=== PATIENT | male | born 1995 | race Caucasian/White ===

== ENCOUNTER 2016-05-31 13:12 | Emergency (ER) | payer OTHER ==
[~2016-05-31] VITALS: Ht 182.9 cm; Wt 79.5 kg
[2016-05-31 13:15] VITALS: BP 133/84; PULSE 64; RESP 20; O2SAT 98
[2016-05-31 15:22] VITALS: BP 121/67; PULSE 72; RESP 20; O2SAT 99
--- NOTE | 2016-05-31 17:27 | ED.REPORT ---
HPI-Rash / Abscess Date of Service May 31, 2016 ED Provider: Chris Bui MD Deo is an otherwise healthy 21-year-old male with a chief complaint of an abscess on his face. He reports a roughly 4 year history of abscesses that form on his right cheek, which resolved well with treatment with doxycycline and incision and drainage, but return. He reports that the swelling and pain at this point is relatively minimal compared to his baseline, but he is hoping to be referred to dermatology. He also complains of a rash on his arms and legs that has been present for about one week. 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 He has not tried to treat it with anything. Nursing Notes Stated Complaint: DERMATOLOGY COMPLAINT Chief Complaint: Skin Rash/Abscess Nursing Notes Reviewed: Yes Allergies: Coded Allergies: No Known Allergies (Unverified , 05/31/16) Scheduled Doxycycline Hyclate (Doxycycline Hyclate) 100 Mg Capsule 100 MG PO BID General Time Seen by MD: 17:24 Chief Complaint Abscess Review of Systems Review of Systems Note: Negative unless stated otherwise in history of present illness Physical Exam General: Well appearing, well developed, well nourished, no acute distress. Head: Multiple small to medium sized pustules on the face, one with an area of crust. Atraumatic, normocephalic. Eyes: No scleral icterus or injection. No discharge. Vision grossly intact. ENT: Voice clear, hearing grossly intact. Respiratory: No respiratory distress, no increased work of breathing. Speaks in complete sentences. Skin: Multiple 1 cm circular, raised lesions with scale on forearms. Roughly 8 cm patch of similar but confluent lesions on his lateral right thigh. Otherwise Warm and dry. Neurological: Grossly nonfocal. Psychological: alert and oriented. Speech appropriate, linear and logical. Behavior appropriate. Initial Vital Signs Vital Signs (First) Date Time Temp Pulse Resp B/P Pulse Ox O2 Delivery O2 Flow Rate FiO2 05/31/16 13:15 36.9 64 20 133/84 98 Room Air Initial VS: Reviewed, Vital signs normal Re-Eval/Medical Decision Med Decision/Clinical Course Otherwise healthy 21-year-old male presents with a chief complaint of skin condition. Reports a long history of abscesses on his face. 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 He is interested in a dermatology referral. Physical exam reveals a small abscess on the patient's face as well as several smaller pustules. Patient states that it it is actually fairly small at this time. I suspect pustular acne. I do not see indication at this time to perform an incision and drainage, and would rather prefer to place the patient on doxycycline and provide a dermatology referral. The patient agrees with this plan. The rash on his arms and legs is small circular lesions slightly raised with scale, possibly psoriasis. Does not resemble tinea. I provided prescription for 2.5% hydrocortisone. I do not suspect a dangerous condition such as TEN or SJS. Provided return precautions. Discharge & Departure Impression: Primary Impression: Pustular acne Disposition: Home Discharge Condition All VS Reviewed: Yes Condition: Stable Patient Instructions: Acne (ED) Additional Instructions: Evaluation for skin condition in the emergency department. History and physical is suggestive of pustular acne on your face. Difficult for me to positively identify the cause of lesions on the arms and legs, however, and confident it is not caused by an emergent condition. As we discussed, I will provide a referral to dermatology. In the meantime I will write a prescription for doxycycline to treat the acne as well as 2.5% hydrocortisone to be used on the arms and legs. Return to emergency room for any new or worsening conditions including increasing redness, swelling, pain or fever. Referrals: Miguel Angel Ramos DO EDSupervising Provider for [facility]: Chris Bui MD Attending Statement Attending attestation: I saw this patient in conjunction with Shawn Mckinnon PA-C. I agree with the workup, evaluation, treatment and disposition. Chris Bui MD copies to: [facility] Chris Bui MD May 31, 2016 17:27 Shawn Mckinnon PA-C May 31, 2016 18:02
[2016-05-31] MEDS ORDERED: DOXY100C2 PO (18:06)
== END 2016-05-31 18:07 | disposition home or self-care (01) ==
LOC: SED 13:12
DX: L70.0 Acne vulgaris (principal); R21 Rash and other nonspecific skin eruption

== ENCOUNTER 2016-10-07 04:13 | Emergency (ER) | payer OTHER ==
[~2016-10-07] VITALS: Ht 182.9 cm; Wt 79.5 kg
[~2016-10-07 04:13] MED LIST: DOXY100C2 PO
[2016-10-07 04:19] VITALS: BP 129/84; PULSE 66; RESP 18; O2SAT 98
--- NOTE | 2016-10-07 04:29 | ED.REPORT ---
HPI-Back Pain Under 40 Date of Service Oct 07, 2016 ED Provider: Liam Britton Patient is a 21 year old male who presents to the ED complaining of low back pain onset 3 mo ago. His pain is worse after about 3 hours of sleep. He does not recall a mechanism of injury. He denies numbness, weakness, tingling, extremity pain, dysuria, fever, or any other symptoms. He is on Accutane. Nursing Notes Stated Complaint: BACK PAIN Chief Complaint: Back Pain or Injury Nursing Notes Reviewed: Yes Allergies: Coded Allergies: No Known Allergies (Unverified , 05/31/16) Scheduled Doxycycline Hyclate (Doxycycline Hyclate) 100 Mg Capsule 100 MG PO BID Scheduled PRN Methocarbamol (Robaxin-750) 750 Mg Tablet 1-2 TAB PO QID PRN PRN For Spasm Naproxen (Naprosyn) 500 Mg Tablet 500 MG PO BID PRN PRN For Pain General Time Seen by MD: 04:28 Chief Complaint Back pain Hx Obtained From: Patient Arrived By: Walk-in Sudden in Onset?: Yes Onset Occurred: More than a week ago... (3 months) Symptom Duration: Since onset Past Medical History Past Medical History Denies Past Surgical History None reported Smoking History Current Every Day Smoker Social History Alcohol Use: "Social" Other Social History: Good social support Ambulatory Status Independent Review of Systems Review of Systems Note: -tingling Constitutional: Denies: Fever Male: Denies Dysuria Musculoskeletal: Reports: Back pain, Denies: Extremity pain Neurologic: Denies: Numbness, Weakness Complete sys rev & neg: except as marked. Physical Exam Initial Vital Signs Vital Signs (First) Date Time Temp Pulse Resp B/P Pulse Ox O2 Delivery O2 Flow Rate FiO2 10/07/16 04:19 36.4 66 18 129/84 98 Room Air Initial VS: Reviewed, Vital signs normal Head / Eyes: Atraumatic, Normocephalic Neck: Full range of motion Respiratory: Breath sounds normal, Clear to auscultation, No respiratory distress Cardiovascular: Regular rate & rhythm, Heart sounds normal, Intact distal pulses Skin: Warm, Dry Psychiatric: Mood/affect normal, Behavior normal, Normal thought content General/Constitutional: Awake, Alert, No acute distress, Well appearing, Well developed Back: Atraumatic Guarded, paraspinal tenderness bilaterally. Unable to stand fully, best effort is canted forward at about 10 degrees. Neurologic: Oriented X3, Speech NL Interpretation & Diagnostics Lab Results Interpretation Result Diagram: 10/07/16 0600 10/07/16 0600 Test 10/07/16 05:20 10/07/16 06:00 Urine Color Yellow (YELLOW) Urine Appearance Clear (CLEAR,HAZY) Urine pH 6.5 (5.0-8.0) Urine Specific [place] 1.015 (1.003-1.035) Urine Protein Negativemg/dL (NEG,TRACE) Urine Glucose (UA) Negativemg/dL (NEGATIVE) Urine Ketones Negativemg/dL (NEGATIVE) Urine Occult Blood Negative (NEGATIVE) Urine Nitrite Negative (NEGATIVE) Urine Bilirubin Negative (NEGATIVE) Urine Urobilinogen Normalmg/dL (NORMAL) Urine Leukocyte Esterase Negative (NEGATIVE) Urine RBC 0-2/hpf (0-2) Urine WBC 0-5/hpf (0-5) Urine Epithelial Cells Occasional/hpf (NONE-MOD) Urine Crystals None seen (NONE SEEN) Urine Bacteria None/hpf (NONE-FEW) Urine Hyaline Casts None/lpf (NONE) Urine Granular Casts None seen (NONE SEEN) Urine Waxy Casts None seen (NONE SEEN) Urine Red Blood Cell Casts None seen (NONE SEEN) Urine White Blood Cell Casts None seen (NONE SEEN) Urine Mucus None seen (None Seen) Urine Trichomonas None seen (NONE SEEN) Urine Yeast None (NONE SEEN) Urinalysis Comment None Urine Culture Reflexed Not indicated White Blood Count 8.1th/mm3 (3.8-10.1) Red Blood Count 4.84mil/mm3 (4.40-5.80) Hemoglobin 15.2g/dL (13.8-17.2) Hematocrit 43.5% (41.0-50.0) Mean Corpuscular Volume 89.9fL (81-100) Mean Corpuscular Hemoglobin 31.4pg (27.0-35.0) Mean Corpuscular Hemoglobin Concent 34.9% (32.0-37.0) Red Cell Distribution Width 12.3% (12.3-15.4) Platelet Count 203bil/L (150-400) Neutrophils (%) (Auto) 58.6% (40-74) Lymphocytes (%) (Auto) 29.3% (14-46) Monocytes (%) (Auto) 8.6% (4-12) Eosinophils (%) (Auto) 2.8% (0-5) Basophils (%) (Auto) 0.6% (0-3) Erythrocyte Sedimentation Rate 1mm/hr (0-15) Sodium Level 139mEq/L (134-144) Potassium Level 4.2mEq/L (3.5-5.2) Chloride Level 101mEq/L (97-108) Carbon Dioxide Level 26mmol/L (18-29) Blood Urea Nitrogen 17mg/dL (6-20) Creatinine 0.82mg/dL (0.76-1.27) Estimat Glomerular Filtration Rate 125mL/min (>59) Glucose Level 101mg/dL (60-99) Calcium Level 9.8mg/dL (8.5-10.1) Total Bilirubin 0.2mg/dL (0.0-1.2) Aspartate Amino Transf (AST/SGOT) 31U/L (0-50) Alanine Aminotransferase (ALT/SGPT) 23U/L (0-44) Alkaline Phosphatase 53U/L (25-150) Total Protein 7.3g/dL (6.4-8.4) Albumin 4.7g/dL (3.4-5.0) X-Ray Interpretation Xray Interpretation: Sclerotic area on superior surface of L2 Study Performed: L-spine, 2/3 view Interpretation / Wet Read by: Interpret - ED physician Re-Eval/Medical Decision Med Decision/Clinical Course 21-year-old with prolonged back pain without specific trauma, has no neurologic findings and benign x-ray with a Schmorl's node noted. Sedimentation rate is normal at one. Labs are unremarkable. He is provided with Naprosyn and methocarbamol when necessary. Follow-up with PCP. Re-Evaluation/Progress : Time of Eval: 05:39 Re-Evaluation/Progress Note: Discussed imaging results and plan for discharge. Patient understands and agrees with plan. All questions addressed at this time. Counseled Regarding: Diagnosis, Lab results, Need for follow-up, When/why to return to ED Discharge & Departure Impression: Primary Impression: Low back pain Chronicity: unspecified Back pain laterality: unspecified Sciatica presence : unspecified whether sciatica present Qualified Code: M54.5 - Low back pain Disposition: Home All VS Reviewed: Yes Condition: Stable Additional Instructions: Begin Naprosyn twice daily. Begin methocarbamol one to two tablets four times daily. Apply heat frequently, and rest when possible. Pay strict attention to lifting mechanics and always use your legs and straight back. Follow-up with your doctor in the office. There is some scarring (sclerotic area) on L2. This is fairly removed from the area of pain. It may require additional imaging. Follow-up with your doctor especially if symptoms not resolving with anti-inflammatories and muscle relaxers. Referrals: [facility] (PCP) Scribe Attestation Portions of this note were transcribed by Debbie Chilel. I, Dr. Britton personally performed the history, physical exam and medical decision-making; I reviewed and confirmed the accuracy of the information in the transcribed note. Signed by: Debbie Chilel 10/07/2016, 0551 copies to: [facility] Salty Britton MD Oct 07, 2016 04:29 DEBBIE CHILEL Oct 07, 2016 04:51
[2016-10-07] MEDS ORDERED: NAPR500T PO (05:50)
[2016-10-07] MEDS ORDERED: METH-313 PO (05:50)
[2016-10-07 05:51] LABS: APPEARANCE,URINE CLEAR (CLEAR,HAZY); COLOR,URINE YELLOW (YELLOW); OCCULT BLOOD,URINE NEGATIVE (NEGATIVE); PH,URINE 6.5 (5.0-8.0); UROBILINOGEN,URINE NORMAL (NORMAL)
[2016-10-07 06:05] VITALS: PULSE 66; RESP 16
[2016-10-07 06:16] LABS: BASOPHILS % (AUTO) 0.6 % (0-3); EOSINOPHILS % (AUTO) 2.8 % (0-5); MONOCYTES % (AUTO) 8.6 % (4-12); Mean Corpuscular Hemoglobin 31.4 pg (27.0-35.0); Mean Corpuscular Volume 89.9 fL (81-100); NEUTROPHILS % (AUTO) 58.6 % (40-74); Platelet Count 203 bil/L (150-400)
[2016-10-07 07:23] LABS: ERYTHROCYTE SEDIMENTATION RATE 1 mm/hr (0-15)
--- NOTE | 2016-10-07 08:59 | DRSVH ---
PROCEDURE: X-RAY LUMBAR SPINE WITH OBLIQUE, MIN 4 VIEWS INDICATIONS: back pain three mos TECHNIQUE: 5 views of the lumbar spine were acquired. COMPARISON: None. FINDINGS: Bones: 5 nonrib-bearing vertebrae are present. Minimal dextroscoliosis. Trace multilevel retrolisth esis.. No vertebral body compression fractures. No suspicious bony lesions. Prominent Schmorl's no de noted involving the superior endplate at the L2 level. Soft tissues: Overlying bowel gas pattern is normal. No suspicious soft tissue calcifications. Oblique images: No pars defects. IMPRESSION: Trace multilevel retrolisthesis. Dictated by: Catalino Kolb [facility] Interpreted: Marina Hughes MD on 10/07/2016 at 8:55 Transcribed by: CHETAN on 10/07/2016 at 8:58 Approved by: Marina Hughes MD, PhD on 10/07/2016 at 9:46
== END 2016-10-07 06:06 | disposition home or self-care (01) ==
LOC: SED 04:13
DX: M54.5 Low back pain (principal); F17.200 Nicotine dependence, unspecified, uncomplicated; Z79.1 Long term (current) use of non-steroidal anti-inflammatories (NSAID)
CPT/HCPCS: 36415; 72120; 80053; 81000; 85025; 85651; 96372; 99284; J1885